=== PATIENT | female | born 1990 | race Caucasian/White ===

== ENCOUNTER 2020-12-10 11:12 | Emergency (ER) | payer OTHER ==
[2020-12-10 11:38] VITALS: RESP 18; TEMP 98.3
[2020-12-10 14:01] LABS: Amorphous Sediment,Urine Rare /hpf; Appearance,Urine Cloudy (Clear); Bacteria,Urine Rare /hpf; Bilirubin,Urine Negative (Negative); Blood,Urine Trace (Negative); Color,Urine Yellow; Glucose,Urine (UA) 3+ (Negative); Ketones,Urine 1+ (Negative); Leukocyte Esterase,Urine Large (Negative); Mucus,Urine Occasional /hpf; Nitrite,Urine Negative (Negative); PH, Urine 5.5 (5.0-8.0); Protein,Urine 1+ (Negative); RBC,Urine 76 /hpf (0-5); Specific Gravity,Urine 1.024 (1.001-1.035); Squamous Epithelial Cell,Urine 31 /hpf (0-4); Urobilinogen,Urine <2.0 mg/dL (<2.0); WBC,Urine 131 /hpf (0-5)
[2020-12-10] MEDS ORDERED: metroNIDAZOLE 500 MG TAB PO STA (14:44)
[2020-12-10] MEDS ORDERED: cefTRIAXone 250 MG VIAL IM STA (14:44)
[2020-12-10] MEDS ORDERED: AZITHROMYCIN 500 MG TAB PO STA (14:44)
--- NOTE | 2020-12-10 14:49 | ED ---
Female Urogenital HPI - General Chief complaint: Urogenital Stated complaint: Femal , 5 weeks Time Seen by Provider: 12/10/20 12:03 Source: patient Mode of arrival: ambulatory Limitations: no limitations - History of Present Illness Initial comments: Patient is a 30-year-old female presenting to the emergency Department with complaints of vaginal discharge for the past week. Patient states last week she took a home test which was positive. She states that throughout last week she's also been having green to yellowish discharge, some irritation as well as an odor. She denies any fevers or chills, no abdominal pain, no vaginal bleeding. This would be her second . She has yet to see an TRACK RIDER as this is brand-new. She denies any further complaints at this time. Her vital signs are stable upon arrival. Last Menstrual Period: 10/24/20 - Related Data Home Medications Medication Instructions Recorded Confirmed Cholecalciferol (Vitamin D3) 125 mcg PO DAILY 12/10/20 12/10/20 [Vitamin D3 (5000 Iu)] glipiZIDE [Glucotrol] 5 mg PO AC-BRKFST 12/10/20 12/10/20 metFORMIN HCL 1,000 mg PO BID 12/10/20 12/10/20 Allergies Allergy/AdvReac Type Severity Reaction Status Date / Time No Known Allergies Allergy Verified 12/10/20 12:45 Review of Systems ROS Statement: Those systems with pertinent positive or pertinent negative responses have been documented in the HPI. ROS Other: All systems not noted in ROS Statement are negative. Past Medical History Past Medical History: Diabetes Mellitus History of Any Multi-Drug Resistant Organisms: None Reported Past Surgical History: Section Past Psychological History: Anxiety Smoking Status: Never smoker Past Alcohol Use History: None Reported Past Drug Use History: Marijuana General Exam - General Exam Comments Initial Comments: GENERAL: Patient is well-developed and well-nourished. Patient is nontoxic and in no acute distress. HEAD: Atraumatic, normocephalic. EYES: Pupils equal round and reactive to light, extraocular movements intact, sclera anicteric, conjunctiva are normal. Eyelids were unremarkable. ENT: TMs normal, nares patent, oropharynx clear without exudates. Moist mucous membranes. NECK: Normal range of motion, supple without lymphadenopathy or JVD. LUNGS: Unlabored respirations. Breath sounds clear to auscultation bilaterally and equal. No wheezes rales or rhonchi. HEART: Regular rate and rhythm without murmurs, rubs or gallops. ABDOMEN: Soft, nontender, normoactive bowel sounds. No guarding, no rebound. No masses appreciated. MUSCULOSKELETAL: Normal extremities with adequate strength and normal range of motion, no pitting or edema. No clubbing or cyanosis. NEUROLOGICAL: Patient is alert and oriented x 3. Motor and sensory are also intact. Cranial nerves II through XII grossly intact. Symmetrical smile. Normal speech, normal gait. PSYCH: Normal mood, normal affect. SKIN: Warm, Dry, normal turgor, no rashes or lesions noted. Limitations: no limitations External exam: Present: erythema (Mild erythema noted to the labias) Speculum exam: Present: vaginal discharge, cervical discharge. Absent: vaginal bleeding By manual exam: Present: normal by manual exam Course Vital Signs 12/10/20 12/10/20 12/10/20 11:33 12:17 15:01 Temperature 98.3 F Pulse Rate 73 90 89 Respiratory 18 18 18 Rate Blood Pressure 102/65 115/61 115/60 O2 Sat by Pulse 98 100 97 Oximetry 12/10/20 15:02 Temperature 98.3 F Pulse Rate 89 Respiratory 18 Rate Blood Pressure 115/60 O2 Sat by Pulse 97 Oximetry Medical Decision Making - Medical Decision Making Patient is a 30-year-old female here for complaints of vaginal odor and discharge for the past week. She also took a home test last week which was positive. She believes she is about 5 weeks . No abdominal pain, no vaginal bleeding. No fevers or chills. Her vitals are stable. Pelvic exam did reveal greenish yellow cervical discharge, erythema present. HCG Quant is 34,000, urine revealed WBCs, bacteria, rapid Trichomonas is positive. Gonorrhea, chlamydia, genital culture are all pending. Urine cultures also pending. I discussed these findings with the patient. Patient will be treated with azithromycin, Rocephin, Flagyl. We did discuss not having intercourse until both partners are treated and tested. Patient needs to follow up with her TRACK RIDER or PCP. She is in agreement with this plan of care. Return parameters were discussed the patient she verbalized understanding. Case discussed with Dr. Rogers. - Lab Data Lab Results 0512/10/20 12/10/20 Range/Units 12:48 12:48 12:48 HCG, Quant 41268.6 mIU/mL Urine Color Yellow Urine Appearance Cloudy H (Clear) Urine pH 5.5 (5.0-8.0) Ur Specific [place] 1.024 (1.001-1.035) Urine Protein 1+ H (Negative) Urine Glucose (UA) 3+ H (Negative) Urine Ketones 1+ H (Negative) Urine Blood Trace H (Negative) Urine Nitrite Negative (Negative) Urine Bilirubin Negative (Negative) Urine Urobilinogen <2.0 (<2.0) mg/dL Ur Leukocyte Esterase Large H (Negative) Urine RBC 76 H (0-5) /hpf Urine WBC 131 H (0-5) /hpf Ur Squamous Epith Cells 31 H (0-4) /hpf Amorphous Sediment Rare H (None) /hpf Urine Bacteria Rare H (None) /hpf Urine Mucus Occasional H (None) /hpf Trichomonas Ag (Rapid) Positive H (Negative) Disposition Clinical Impression: and not yet delivered in first trimester, Trichomonas infection Disposition: HOME SELF-CARE Condition: Stable Instructions (If sedation given, give patient instructions): Trichomoniasis (ED) Additional Instructions: Please return to the Emergency Department if symptoms worsen or any other concerns. Trichomonas test today is positive. Cultures are still pending. No sexual intercourse until partner is treated as well. Please follow-up with your primary care physician for retesting. Please also follow-up with your TRACK RIDER. Is patient prescribed a controlled substance at d/c from ED?: No Referrals: [facility] [Primary Care Provider] - 1-2 days Rl Lopez MD [STAFF PHYSICIAN] - 1-2 days
[2020-12-10 15:02] VITALS: BP 115/60; PULSE 89
[2020-12-11 15:41] LABS: C. trachomatis,PCR Negative (Neg,Equiv); Chlamydia trachomatis Source Cervix; N. gonorrhoeae,PCR Negative (Neg,Equiv); Neisseria Source Cervix
== END 2020-12-10 15:13 | disposition home or self-care (01) ==
LOC: EC 11:12
DX: O98.311 Other infections with a predominantly sexual mode of transmission complicating pregnancy, first trimester (principal); A59.9 Trichomoniasis, unspecified; O24.911 Unspecified diabetes mellitus in pregnancy, first trimester; O99.341 Other mental disorders complicating pregnancy, first trimester; F41.9 Anxiety disorder, unspecified; Z79.84 Long term (current) use of oral hypoglycemic drugs; Z3A.01 Less than 8 weeks gestation of pregnancy
CPT/HCPCS: 36415; 81001; 84702; 87808; 87491; 87591; 87070; 87086; 99284; 96372; J0696

== ENCOUNTER 2021-01-13 08:57 | Emergency (ER) | payer OTHER ==
[2021-01-13 09:02] VITALS: BP 109/58; PULSE 87; RESP 18; TEMP 98.1
--- NOTE | 2021-01-13 09:48 | ED ---
General Adult HPI - General Chief complaint: Urogenital Stated complaint: Female Time Seen by Provider: 01/13/21 09:03 Source: patient, RN notes reviewed Mode of arrival: ambulatory Limitations: no limitations - History of Present Illness Initial comments: 30-year-old female with a past medical history of diabetes mellitus, thyroid disorder presents to the emergency room for a chief complaint of vaginal discharge. Patient reports she is about 11 weeks . She has an appointment coming up with her STATION OPERATOR on the to have an ultrasound. Patient denies any abdominal pain or vaginal bleeding. Patient states she noticed yellow vaginal discharge a few days ago. She denies any foul odor. She denies any new sexual partners or concerns for STDs. Patient denies dysuria. Patient denies fevers. States she that maybe she could have BV she has had this in the past and it appears similar.Patient has no other complaints at this time including shortness of breath, chest pain, abdominal pain, nausea or vomiting, headache, or visual changes. - Related Data Home Medications Medication Instructions Recorded Confirmed metFORMIN HCL 1,000 mg PO BID 12/10/20 01/13/21 Albuterol Sulfate [Proair Hfa] 2 puff INHALATION RT-Q4H PRN 01/13/21 01/13/21 Levothyroxine Sodium [Synthroid] 25 mcg PO DAILY 01/13/21 01/13/21 Ern-Clrh-Yzhbn Acid 1 cap PO DAILY 01/13/21 01/13/21 [-U Capsule (formulary)] busPIRone HCL [Buspar] 7.5 mg PO BID 01/13/21 01/13/21 Previous Rx's Medication Instructions Recorded Cephalexin [Keflex] 500 mg PO BID 7 Days #14 cap 01/13/21 Allergies Allergy/AdvReac Type Severity Reaction Status Date / Time No Known Allergies Allergy Verified 01/13/21 10:29 Review of Systems ROS Statement: Those systems with pertinent positive or pertinent negative responses have been documented in the HPI. ROS Other: All systems not noted in ROS Statement are negative. Past Medical History Past Medical History: Diabetes Mellitus, Thyroid Disorder History of Any Multi-Drug Resistant Organisms: None Reported Past Surgical History: Section Past Psychological History: Anxiety, Depression Smoking Status: Never smoker Past Alcohol Use History: None Reported Past Drug Use History: Marijuana General Exam Limitations: no limitations General appearance: alert, in no apparent distress Head exam: Present: atraumatic, normocephalic, normal inspection Eye exam: Present: normal appearance, PERRL, EOMI. Absent: scleral icterus, conjunctival injection, periorbital swelling ENT exam: Present: normal exam, mucous membranes moist Neck exam: Present: normal inspection. Absent: tenderness, meningismus, lymphadenopathy Respiratory exam: Present: normal lung sounds bilaterally. Absent: respiratory distress, wheezes, rales, rhonchi, stridor Cardiovascular Exam: Present: regular rate, normal rhythm, normal heart sounds. Absent: systolic murmur, diastolic murmur, rubs, gallop, clicks GI/Abdominal exam: Present: soft, normal bowel sounds. Absent: distended, tenderness, guarding, rebound, rigid External exam: Present: normal external exam. Absent: erythema, swelling, lesions, lacerations, ecchymosis Speculum exam: Present: vaginal discharge (Slight white vaginal discharge noted) By manual exam: Present: normal by manual exam. Absent: cervical motion tenderness, adnexal tenderness, uterine tenderness Course Vital Signs 01/13/21 08:58 Temperature 98.1 F Pulse Rate 87 Respiratory 18 Rate Blood Pressure 109/58 O2 Sat by Pulse 96 Oximetry Medical Decision Making - Medical Decision Making Patient does have mild vaginal discharge noted. Patient was tested positive for Trichomonas. She does not have any signs of PID such as abdominal pain or adnexal tenderness. Patient be treated with 2 g of Flagyl given this is the recommended dosage for women. She will be empirically treated for gonorrhea and chlamydia as well. Patient does have a possible urinary tract infection too and will be treated accordingly. Discussed not to engage in any sexual intercourse and to hold partners treated. She needs to follow up with STATION OPERATOR as soon as possible. pt's STATION OPERATOR is out of [place] - Lab Data Lab Results 01/13/21 01/13/21 01/13/21 Range/Units 09:37 09:37 09:37 Urine Color Yellow Urine Appearance Turbid H (Clear) Urine pH 6.0 (5.0-8.0) Ur Specific [place] 1.023 (1.001-1.035) Urine Protein 2+ H (Negative) Urine Glucose (UA) 3+ H (Negative) Urine Ketones Trace H (Negative) Urine Blood Moderate H (Negative) Urine Nitrite Negative (Negative) Urine Bilirubin Negative (Negative) Urine Urobilinogen <2.0 (<2.0) mg/dL Ur Leukocyte Esterase Large H (Negative) Urine RBC >182 H (0-5) /hpf Urine WBC >182 H (0-5) /hpf Urine WBC Clumps Occasional H (None) /hpf Ur Squamous Epith Cells 32 H (0-4) /hpf Urine Bacteria Occasional H (None) /hpf Urine Mucus Rare H (None) /hpf Urine HCG, Qual Detected (Not Detectd) Trichomonas Ag (Rapid) Positive H (Negative) Disposition Clinical Impression: Trichomoniasis of vagina, UTI (urinary tract infection) Disposition: HOME SELF-CARE Condition: Good Instructions (If sedation given, give patient instructions): Urinary Tract Infection in (ED), Trichomoniasis (ED) Additional Instructions: Please take antibiotic as directed. You not engage in sexual intercourse with your partner until they are treated and everyone is symptom-free for at least 7 days. Please follow-up with STATION OPERATOR as soon as possible. Return to the emergency room for any worsening symptoms. Prescriptions: Cephalexin [Keflex] 500 mg PO BID 7 Days #14 cap Is patient prescribed a controlled substance at d/c from ED?: No Referrals: [facility] [Primary Care Provider] - 1-2 days Time of Disposition: 10:50
[2021-01-13 09:56] LABS: Appearance,Urine Turbid (Clear); Bacteria,Urine Occasional /hpf; Bilirubin,Urine Negative (Negative); Blood,Urine Moderate (Negative); Color,Urine Yellow; Glucose,Urine (UA) 3+ (Negative); Ketones,Urine Trace (Negative); Leukocyte Esterase,Urine Large (Negative); Mucus,Urine Rare /hpf; Nitrite,Urine Negative (Negative); Protein,Urine 2+ (Negative); RBC,Urine >182 /hpf (0-5); Specific Gravity,Urine 1.023 (1.001-1.035); Squamous Epithelial Cell,Urine 32 /hpf (0-4); Urobilinogen,Urine <2.0 mg/dL (<2.0); WBC,Urine >182 /hpf (0-5)
[2021-01-13] MEDS ORDERED: cefTRIAXone 1,000 MG VIAL (IM USE) IM STA ×2 (10:47→10:49)
[2021-01-13] MEDS ORDERED: AZITHROMYCIN 500 MG TAB PO STA (10:47)
[2021-01-13] MEDS ORDERED: metroNIDAZOLE 500 MG TAB PO STA (10:48)
[2021-01-14 15:46] LABS: C. trachomatis,PCR Negative (Neg,Equiv); Chlamydia trachomatis Source Vagina; N. gonorrhoeae,PCR Negative (Neg,Equiv); Neisseria Source Vagina
== END 2021-01-13 11:18 | disposition home or self-care (01) ==
LOC: EC 08:57
DX: O23.41 Unspecified infection of urinary tract in pregnancy, first trimester (principal); A59.01 Trichomonal vulvovaginitis; O99.281 Endocrine, nutritional and metabolic diseases complicating pregnancy, first trimester; O99.341 Other mental disorders complicating pregnancy, first trimester; O24.911 Unspecified diabetes mellitus in pregnancy, first trimester; E11.9 Type 2 diabetes mellitus without complications; F32.9 Major depressive disorder, single episode, unspecified; Z79.84 Long term (current) use of oral hypoglycemic drugs; Z3A.11 11 weeks gestation of pregnancy
CPT/HCPCS: 81001; 81025; 87808; 87491; 87591; 87086; 99284; 96374; J0696

== ENCOUNTER → 2021-01-13 | Outpatient (CLI) | payer OTHER ==
[2021-01-13 13:29] LABS: Appearance,Urine Cloudy (Clear); Bacteria,Urine Rare /hpf; Bilirubin,Urine Negative (Negative); Blood,Urine Negative (Negative); Color,Urine Light Yellow; Glucose,Urine (UA) 4+ (Negative); Ketones,Urine 1+ (Negative); Leukocyte Esterase,Urine Large (Negative); Nitrite,Urine Negative (Negative); Protein,Urine Negative (Negative); RBC,Urine 23 /hpf (0-5); Specific Gravity,Urine 1.009 (1.001-1.035); Squamous Epithelial Cell,Urine 2 /hpf (0-4); Urobilinogen,Urine <2.0 mg/dL (<2.0); WBC,Urine 41 /hpf (0-5)
[2021-01-13 19:17] LABS: Basophils # (A) 0.03 X 10*3/uL (0.00-0.10); Basophils % (A) 0.3 %; Eosinophils # (A) 0.19 X 10*3/uL (0.04-0.35); Eosinophils % (A) 1.8 %; HCT 38.5 % (37.2-46.3); HGB 13.1 g/dL (12.0-15.0); Lymphocytes # (A) 1.98 X 10*3/uL (0.90-5.00); Lymphocytes % (A) 18.3 %; MCH 33.9 pg (27.0-32.0); MCV 99.7 fL (80.0-97.0); Mean Platelet Volume 10.1 fL (9.5-12.2); Monocytes # (A) 0.64 X 10*3/uL (0.20-1.00); Monocytes % (A) 5.9 %; Neutrophils # (A) 7.95 X 10*3/uL (1.80-7.70); Neutrophils % (A) 73.3 %; Platelet Count 238 X 10*3/uL (140-440); RBC 3.86 X 10*6/uL (4.10-5.20); WBC 10.83 X 10*3/uL (4.50-10.00)
[2021-01-13 21:21] LABS: HIV 2 AB Non-Reactive (Non-Reactive); HIV AB P24 Non-Reactive (Non-Reactive); HIV P24 AG Non-Reactive (Non-Reactive)
[2021-01-13 21:57] LABS: Hepatitis B Surface Antigen Non-Reactive (Non-Reactive); Hepatitis C IgG Antibody Non-Reactive (Non-Reactive)
[2021-01-13 22:39] LABS: HCG,Quantitative Serum 73344.5 mIU/mL
[2021-01-14 01:23] LABS: Urine Alcohol Negative (Negative); Urine Barbiturate Negative (Negative); Urine Cocaine Negative (Negative); Urine Methadone Negative (Negative); Urine Opiates Negative (Negative); Urine Phencyclidine Negative (Negative)
== END | disposition home or self-care (01) ==
LOC: LABWHC1 11:33
PROVIDERS: ATTEND Midwife
DX: O23.41 Unspecified infection of urinary tract in pregnancy, first trimester (principal); O99.280 Endocrine, nutritional and metabolic diseases complicating pregnancy, unspecified trimester; E55.9 Vitamin D deficiency, unspecified; Z3A.00 Weeks of gestation of pregnancy not specified
CPT/HCPCS: 36415; 80306; 80307; 81001; 81220; 82306; 82947; 84702; 85025; 86762; 86780; 86803; 86850; 86900; 86901; 87086; 87340; 87390